=== PATIENT | female | born 1990 | race Caucasian/White ===

== ENCOUNTER → 2016-12-23 | Outpatient (CLI) | payer OTHER | LOC: ULTRA 18:48 | DX: M79.89 Other specified soft tissue disorders (principal); M79.605 Pain in left leg ==

== ENCOUNTER 2017-01-24 06:24 | Day surgery (SDC) | payer OTHER ==
[~2017-01-24] VITALS: Ht 172.7 cm; Wt 100.7 kg
--- NOTE | ~2017-01-24 | O ---
[facility] [place] [address] OPERATIVE REPORT Name: NATALIEROSIE Room #: DEP [facility] M..#: [id number] Admission: 01/24/17 Attend Phys: Yonathan Hewitt MD Discharge: 01/24/17 Date of : 89 Report #: [id number] THIS REPORT FOR: //name// CC: JEANINE NATALIE Hewitt DATE OF SERVICE: 01/24/2017 PREOPERATIVE DIAGNOSIS: Healed left ankle fracture with retained metal fixation including syndesmotic screw. POSTOPERATIVE DIAGNOSIS: Healed left ankle fracture with retained metal fixation including syndesmotic screw. PROCEDURE: Removal of syndesmotic screw, left bimalleolar ankle fracture. SURGEON: Yonathan Hewitt MD INDICATIONS: This 26-year-old female underwent open repair of a left bimalleolar ankle fracture about 2 months ago. The fracture seems to be healing in satisfactorily in acceptable alignment. There is [address] and we have agreed to go ahead with removal of the syndesmotic screw before she begins aggressive full weightbearing activity. DESCRIPTION OF PROCEDURE: The patient was taken to the operating room where she was placed under very brief anesthetic. She is too anxious to consider local. The left lower leg and foot were meticulously prepped and draped. C-arm was used to visualize the appropriate screw. Small skin incision was made through the old surgical scar and the syndesmotic screw was removed without difficulty. The rest of metal was left in place. The skin edges were reapproximated with several 4-0 nylon sutures. A gently compressive sterile dressing was applied. The patient was awakened and returned to recovery room in good condition. She may begin advancing activity as comfort strength will allow. I will see her back in my office in 10 days for followup and suture removal. <ELECTRONICALLY SIGNED> By: Yonathan Hewitt MD 01/26/17 [id number] [id number] Yonathan Hewitt MD /nt
[~2017-01-24 06:24] MED LIST: HYDROCODONE-APA1 TA1 PO; ONDANSETRON HCL4 M2 PO
[2017-01-24 10:53] VITALS: BP 106/63
== END 2017-01-24 15:43 | disposition home or self-care (01) ==
LOC: TBA 06:24 → OR 06:24
DX: Z47.2 Encounter for removal of internal fixation device (principal)
CPT/HCPCS: 50010; 50101; 50386; 56526; 57091; 62110; 62900; 70005